=== PATIENT | female | born 1995 | race Caucasian/White ===

== ENCOUNTER → 2016-10-05 | Outpatient (CLI) | payer OTHER ==
--- NOTE | 2016-10-06 07:41 | WWHP ---
DATE OF SERVICE: 10/05/2016 CHIEF COMPLAINT: The patient is here for her routine gynecologic exam and for brit control. HPI: This is a 21-year-old G0 with an LMP of 09/23/16 who has been using condoms for control. She states she used Nexplanon from about age 17 to 21 and this was discontinued early in 04/22 because of side effects. She thinks she gained close to 50 pounds with Nexplanon. She also feels like she had more food allergies when she was on Nexplanon. She also thinks she had more headaches with Nexplanon. She had fewer periods with Nexplanon. She believes her periods were regular prior to starting Nexplanon. After the Nexplanon was removed periods have been about monthly, but have been heavier with clots. She did have a month where she had fairly continuous bleeding throughout the month in July of 2016. Her last pelvic examination was about 4 years ago. Past medication history is unremarkable. MEDICATIONS: None. ALLERGIES: No known drug allergies. PAST SURGICAL HISTORY: None. 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 She has no history of STDs. SOCIAL HISTORY: She quit smoking early in 2016. She has about 3 alcoholic drinks per month and denies drug use. She has been with her fiance since 2013. She plans to get in 2019. This is her second sexual partner in her lifetime. She is planning to go back to school and is currently not working outside the home. FAMILY HISTORY: She has 2 aunts who had breast cancer and ovarian cancer. One also developed bone cancer. She has an uncle who had lung and brain cancer and a grandmother and uncle who have diabetes. REVIEW OF SYSTEMS: She believes she gained about 50 pounds from age 17 to 20 while on Nexplanon. She denies respiratory, cardiac or GI problems. PHYSICAL EXAM: Blood pressure 114/68. Height 5 feet 6 inches. Weight 260 pounds. Temperature 96.4. Pulse 79. This is a well-developed, heavyset white female who is alert and oriented x3 in no acute distress. HEENT is within normal limits. NECK: Supple without mass or thyromegaly. CHEST AND LUNGS: Clear to auscultation. HEART: Regular rate and rhythm. Breasts are without mass or discharge. Axillary exam is negative for adenopathy. BACK: Negative for CVA tenderness. ABDOMEN: Mildly obese, soft, nontender without palpable masses. PELVIC EXAM: Normal external genitalia. Cervix and vagina appear normal. There is no unusual discharge. There is no cervical motion tenderness. The uterus is mid position, nongravid size and nontender. There are no palpable adnexal masses or tenderness. Bimanual examination is somewhat limited secondary to her size. Rectal exam was deferred. EXTREMITIES: Nontender. IMPRESSION: 1. A 21-year-old female with normal gynecologic exam. 2. Menometrorrhagia after discontinuing Nexplanon in 2016. 3. The patient is overweight. PLAN: 1. Pap smear was performed. 2. Self-breast examination was discussed. 3. GC and chlamydia testing from the cervix was obtained. 4. The patient will keep a menstrual calendar. 5. We discussed various options for control. At this time, I think a trial of oral contraception would be [place] because of her menometrorrhagia. We have discussed other options including NuvaRing and IUDs. The patient was given a prescription for Ortho Tri-Cyclen and she is to take 1 daily and she will start this on the Tuesday following the onset of her next normal menstrual period. I have recommended that she use condoms through the first pack and as needed for STD prevention. 6. STD prevention was discussed. We have discussed the importance of limiting sexual partners and condom use. 7. We have discussed ways of weight control including the importance of regular exercise and good nutrition. 8. control pill side effects and risks were discussed including possibility of headaches, nausea, weight gain and breast tenderness. She was instructed to call if she was having problems with control pills. We have also discussed the increased risk for blood clots. 9. Prescription for the control pills for the upcoming year was given to the patient. 10. She will return in one year and p.r.n. MTDD
== END | disposition home or self-care (01) ==
LOC: WWCWWP 09:52
PROVIDERS: ATTEND Obstetrics & Gynecology
DX: Z11.3 Encounter for screening for infections with a predominantly sexual mode of transmission (principal)
CPT/HCPCS: 87491; 87591

== ENCOUNTER → 2017-11-29 | Outpatient (CLI) | payer OTHER ==
[2017-11-29 08:51] VITALS: BP 114/73; PULSE 87; TEMP 98; BMI 38.8
--- NOTE | 2017-11-29 09:42 | P.HPOB ---
History of Present Illness H&P Date: 11/29/17 Chief Complaint: The patient is here for her routine gynecologic exam. This is a 22-year-old G0 with an LMP of 10/02/2017. The patient states her menstrual periods were regular every month until September. She states her LMP lasted nearly 2 months. She states she did a test which was negative. She has been using condoms for control. She briefly used oral contraception as prescribed last year, but she had difficulty taking control pills consistently. She did not use them very long. She is otherwise without gynecologic complaints. She states she is probably not interested in ever having children. Review of Systems She has lost 12 pounds over the last year. She denies respiratory, cardiac, or G.I. problems. 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 History of Any Multi-Drug Resistant Organisms: None Reported Past Surgical History: No Surgical Hx Reported Past Psychological History: No Psychological Hx Reported Smoking Status: Current some day smoker (About 6 cigarettes per week) Past Alcohol Use History: Rare Past Drug Use History: Marijuana (She states this helps her sleep.) - Past Family History Mother Additional Family Medical History / Comment(s): Some type of blood clotting disorder that requires her to take a baby aspirin daily. She has an aunt who had breast cancer and an aunt who had ovarian cancer. A grandmother had endometriosis. Medications and Allergies Home Medications Medication Instructions Recorded Confirmed Type Ibuprofen 400 mg PO PRN 11/29/17 History Allergies Allergy/AdvReac Type Severity Reaction Status Date / Time No Known Allergies Allergy Unverified 11/29/17 08:47 Exam Vital Signs Temp Pulse BP 11/29/17 08:47 98.0 F 87 114/73 Intake and Output 11/28/17 11/29/17 11/29/17 22:59 06:59 14:59 Other: Weight 112.491 kg Height 5'7", weight 248 pounds, BMI 38.8. This is a well-developed well-nourished heavyset white female who is alert and oriented times 3 in no acute distress. HEENT: Within normal limits. NECK: Supple without mass or thyromegaly. CHEST AND LUNGS: Clear to auscultation. HEART: Regular rate and rhythm. BREASTS: Are without mass or discharge. There is a birthmark at the 1 o'clock position of the left breast measuring presently 8 x 8 mm that the patient states she has had her entire life. AXILLARY EXAM: Negative for adenopathy. BACK: Negative for CVA tenderness. ABDOMEN: Soft, nontender, without palpable masses. PELVIC EXAM: Normal external genitalia. Cervix and vagina appear normal. There is no unusual discharge. There is no evidence of prolapse. The uterus is midposition, nongravid size and nontender. There are no palpable adnexal masses or tenderness. RECTAL EXAM: deferred EXTREMITIES: Nontender. IMPRESSION: 1. 22-year-old female with normal gynecologic exam using condoms for control. 2. Recent prolonged menses with previous regular menstrual periods. 3. Family history of a mother who has some type of blood clotting disorder. PLAN: 1. Pap smear was deferred since she had a normal one last year. 2. STD prevention was discussed. I have stressed the importance of limiting sexual partners and the use of condoms if she is sexually active. 3. We have discussed various options for control including the Nuva ring , control pills, condoms and IUD. I have asked the patient to try to find out the exact diagnosis of her mothers clotting disorder. We can consider testing if her mother has some type of hereditary clotting mutation. If the patient has some type of clotting mutation, we would probably want to avoid estrogen containing control. 4. I've given the patient information on the ParaGard IUD as well as some information on Nuva ring. She would like to consider these options. We also discussed tubal sterilization since she states she is probably not interested in having children ever. I have discouraged her from making the more permanent decision about sterilization at this time since she is so young. 5. STD screening will be done today including GC and Chlamydia screening from the cervix, blood tests including HIV, RPR, hepatitis B surface antigen, and hepatitis C antibody. 6. She will keep a menstrual calendar. She will call if she has menstrual irregularities. 7. She will return in one year and PRN. She will call if she is interested in proceeding with any of the control options discussed.
[2017-11-29 17:52] LABS: HIV 1 AB Non-Reactive (Non-Reactive); HIV AB P24 Non-Reactive (Non-Reactive); HIV P24 AG Non-Reactive (Non-Reactive)
[2017-11-29 18:09] LABS: Hepatitis C IgG Antibody Non-Reactive (Non-Reactive)
[2017-11-30 13:30] LABS: C. trachomatis,PCR Negative (Neg,Equiv); Chlamydia trachomatis Source Cervix; N. gonorrhoeae,PCR Negative (Neg,Equiv); Neisseria Source Cervix
== END | disposition home or self-care (01) ==
LOC: WWCWWP 08:41
PROVIDERS: ATTEND Obstetrics & Gynecology
DX: Z11.3 Encounter for screening for infections with a predominantly sexual mode of transmission (principal)
CPT/HCPCS: 86780; 86803; 87340; 87390; 87491; 87591

== ENCOUNTER → 2019-01-24 | Outpatient (CLI) | payer OTHER ==
[2019-01-24 08:13] VITALS: BP 100/64; PULSE 77; RESP 16; TEMP 98.1
--- NOTE | 2019-01-24 09:01 | P.HPOB ---
History of Present Illness H&P Date: 01/24/19 Chief Complaint: the patient is here for her routine gynecologic exam and control. This is a 23-year-old G0 with an LMP of 01/13/2019. The patient is requesting to be started on control pills. She has been using spermicide or withdrawal for control. She had previously tried control pills but was not taking them consistently and therefore discontinued them. She had also used Nexplanon but she felt sick with that and had it removed after 1 or 2 y ears. She states her menses are regular every month. Her last 2 menstrual periods have been shorter than usual and lasted about 2-3 days when they usually have been lasting about 5 days. She took 2 tests and they were both negative. She is without gynecologic complaints. She thinks she will do better taking the control pills consistently this time. Review of Systems The patient has lost 21 pounds over the last year. She denies respiratory, cardiac, or G.I. problems. 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 History of Any Multi-Drug Resistant Organisms: None Reported Past Surgical History: No Surgical Hx Reported Past Psychological History: No Psychological Hx Reported Smoking Status: Former smoker Past Alcohol Use History: Rare (4 per year) Additional Past Alcohol Use History / Comment(s): she quit smoking in 2018. Past Drug Use History: Marijuana Additional Drug Use History / Comment(s): she states she uses marijuana to help her sleep. Additional History: she is single but has been with her boyfriend since July 2017. 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 - Past Family History Mother Additional Family Medical History / Comment(s): her mother takes a baby aspirin daily, but the patient states her mother has never had a internal blood clots. She has an aunt who had breast cancer and an aunt who had ovarian cancer. A grandmother had endometriosis. Medications and Allergies Home Medications Medication Instructions Recorded Confirmed Type Ibuprofen 400 mg PO DAILY PRN 11/29/17 01/24/19 History Cholecalciferol (Vitamin D3) 1 tab PO DAILY 01/24/19 01/24/19 History [Vitamin D3] Iron 25 mg PO DAILY 01/24/19 01/24/19 History Allergies Allergy/AdvReac Type Severity Reaction Status Date / Time No Known Allergies Allergy Unverified 01/24/19 08:15 Exam Vital Signs Temp Pulse Resp BP Pulse Ox 01/24/19 08:09 98.1 F 77 16 100/64 98 Intake and Output 01/23/19 01/24/19 01/24/19 22:59 06:59 14:59 Other: Weight 102.965 kg height 5 feet 6 inches, weight 227 pounds, BMI 36.6. This is a well-developed well-nourished White female who is alert and oriented times 3 in no acute distress. HEENT: Within normal limits. NECK: Supple without mass or thyromegaly. CHEST AND LUNGS: Clear to auscultation. HEART: Regular rate and rhythm. BREASTS: Are without mass or discharge. AXILLARY EXAM: Negative for adenopathy. BACK: Negative for CVA tenderness. ABDOMEN: Soft, nontender, without palpable masses. PELVIC EXAM: Normal external genitalia. Cervix and vagina appear normal. There is no unusual discharge. There is no evidence of prolapse. The uterus is midposition, nongravid size and nontender. There are no palpable adnexal masses or tenderness. RECTAL EXAM: deferred EXTREMITIES: Nontender. IMPRESSION: 1. 23-year-old female with normal gynecologic exam requesting oral contraception for control. PLAN: 1. Pap smear was performed. 2. Self breast awareness was discussed with the patient. 3. STD prevention was discussed. I have stressed the importance of limiting sexual partners and she is aware that condom use would help to decrease the risk for STDs. 4. GC and chlamydia testing were obtained from the cervix. Blood tests will include HIV, RPR, hepatitis B surface antigen and hepatitis C antibody. 5. we had a long discussion regarding control pills including risks such as internal blood clots. We also discussed how smoking can increase the risk for blood clots. She understands these things and would like to start control pills. She will be started on Tri-Sprintec andshe is to take 1 daily starting on the first Tuesday after the onset of her next normal menstrual period. The electronic prescription will be sent to [facility] pharmacy on . She will call if she has any questions or problems. 6. She was advised to return in one year for her annual well woman exam.
[2019-01-24 18:22] LABS: Hepatitis B Surface Antigen Non-Reactive (Non-Reactive); Hepatitis C IgG Antibody Non-Reactive (Non-Reactive)
[2019-01-24 18:26] LABS: HIV 1 AB Non-Reactive (Non-Reactive); HIV 2 AB Non-Reactive (Non-Reactive); HIV AB P24 Non-Reactive (Non-Reactive); HIV P24 AG Non-Reactive (Non-Reactive)
[2019-01-25 15:03] LABS: C. trachomatis,PCR Positive (Neg,Equiv); Chlamydia trachomatis Source Cervix; N. gonorrhoeae,PCR Negative (Neg,Equiv); Neisseria Source Cervix
== END | disposition home or self-care (01) ==
LOC: WWCWWP 08:03
PROVIDERS: ATTEND Obstetrics & Gynecology
DX: Z11.3 Encounter for screening for infections with a predominantly sexual mode of transmission (principal)
CPT/HCPCS: 36415; 86780; 86803; 87340; 87390; 87491; 87591

== ENCOUNTER 2020-05-10 08:37 | Inpatient (IN) | payer OTHER ==
[2020-05-10] MEDS ORDERED: AMPICILLIN 2,000 MG in SODIUM CHLORIDE 0.9% 100 ML IVPB STA (09:04)
[2020-05-10] MEDS ORDERED: BETAMET ACET-BETAMETH SOD PHOS 6 MG/ML MDV IM SCH (09:15)
[2020-05-10] MEDS: LACTATED RINGERS 1,000 ML IV SCH ×2 (09:23→14:53)
[2020-05-10] MEDS ORDERED: LIDOCAINE 0.5% (PF) 5 MG/ML (50 ML SDV) SQ PRN (10:01)
[2020-05-10] MEDS ORDERED: METHYLERGONOVINE 0.2 MG/ML 1 ML AMP IM PRN (10:01)
[2020-05-10] MEDS ORDERED: CARBOPROST TROMETHAMINE 250 MCG/ML 1 ML AMP IM PRN (10:01)
[2020-05-10] MEDS ORDERED: OXYTOCIN 10 UNIT/ML 1 ML VIAL IM PRN (10:01)
[2020-05-10] MEDS ORDERED: TERBUTALINE 1 MG/ML VIAL SQ PRN (10:01)
[2020-05-10] MEDS ORDERED: OXYTOCIN 30 UNITS/500 ML NS 30 UNIT in SALINE 1 500ML.BAG IV SCH (10:15)
[2020-05-10] MEDS ORDERED: LACTATED RINGERS 1,000 ML IV SCH (10:15)
[2020-05-10 10:23] LABS: Basophils % (A) 0 %; Eosinophils # (A) 0.1 k/uL (0-0.7); Eosinophils % (A) 1 %; HCT 32.8 % (34.0-46.0); HGB 11.2 gm/dL (11.4-16.0); Lymphocytes # (A) 1.2 k/uL (1.0-4.8); Lymphocytes % (A) 11 %; MCH 26.8 pg (25.0-35.0); MCHC 34.2 g/dL (31.0-37.0); MCV 78.3 fL (80.0-100.0); Monocytes # (A) 0.5 k/uL (0-1.0); Monocytes % (A) 4 %; Neutrophils # (A) 9.3 k/uL (1.3-7.7); Neutrophils % (A) 83 %; Platelet Count 206 k/uL (150-450); RDW 14.3 % (11.5-15.5); WBC 11.1 k/uL (3.8-10.6)
[2020-05-10] MEDS ORDERED: ROPIVACAINE 5MG/ML 20ML VIAL ONE (11:06)
[2020-05-10] MEDS ORDERED: SODIUM CHLORIDE 0.9% 100 ML BAG ONE (11:06)
[2020-05-10] MEDS ORDERED: fentaNYL (PF) 50 MCG/ML 5 ML AMP ONE (11:06)
[2020-05-10] MEDS ORDERED: ROPIVACAINE 100 MG, fentaNYL (PF). 200 MCG in SODIUM CHLORIDE 0.9% 76 ML EPIDURAL ONE (11:27)
[2020-05-10] MEDS ORDERED: AMPICILLIN 1,000 MG in SODIUM CHLORIDE 0.9% 50 ML IVPB SCH (13:00)
[2020-05-10] MEDS ORDERED: diphenhydrAMINE 25 MG CAP PO PRN (17:03)
[2020-05-10] MEDS ORDERED: LANOLIN CREAM 5 GM TUBE TOPICAL PRN (17:03)
[2020-05-10] MEDS ORDERED: ACETAMINOPHEN TAB 325 MG TAB PO PRN (17:03)
[2020-05-10] MEDS ORDERED: BENZOCAINE/MENTHOL SPRAY 1 GM/SPRAY AEROSOL TOPICAL PRN (17:03)
[2020-05-10] MEDS ORDERED: ZOLPIDEM 5 MG TAB PO PRN (17:03)
[2020-05-10] MEDS ORDERED: diphenhydrAMINE 50 MG CAP PO PRN (17:03)
[2020-05-10] MEDS ORDERED: diphenhydrAMINE 50 MG/ML 1 ML VIAL IVP PRN ×2 (17:03)
[2020-05-10] MEDS ORDERED: SIMETHICONE 80 MG CHEWABLE PO PRN (17:03)
[2020-05-10] MEDS ORDERED: HYDROCORTISONE 2.5% RECTAL CREAM 30 GM TUBE RECTAL PRN (17:03)
--- NOTE | 2020-05-10 17:06 | P.HPOB ---
History of Present Illness H&P Date: 05/10/20 Chief Complaint: Intrauterine at 34 weeks 5 days gestation: Active labor Patient is a 25-year-old 0 at 34 weeks 5 days gestation who arrives complaining of contractions and discomfort for the last 4 hours. While she was in triage she got up to use the restroom and had spontaneous rupture of her membranes. Clear fluid is noted. Her course otherwise had been relatively unremarkable and she was feeling well at this time. Ultrasound previously showed vertex presentation at 32 weeks and baby in the 80th percentile. At that time amniotic fluid index was 7.9 which is low normal. As she was dilated to 4 to half to 5 cm we did have a discussion on safety of transfer and due to the fact that she was ruptured and appeared to be making change the decision to keep her here and do local delivery with expectation for transfer of the baby after delivery was made. She did receive 1 dose of Celestone and IV antibiotics for group B strep prophylaxis has been started. All other questions are answered for her at this time. The midlevel provider is also spoken to her and she is aware of what the plan will be. Likely she will do an epidural for analgesia and if labor doesn't begin to stall plan Pitocin for augmentation of labor. 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 History of Any Multi-Drug Resistant Organisms: None Reported Past Surgical History: No Surgical Hx Reported Past Anesthesia/Blood Transfusion Reactions: No Reported Reaction Past Psychological History: Anxiety Smoking Status: Former smoker Past Alcohol Use History: Rare Additional Past Alcohol Use History / Comment(s): she quit smoking in 2018. Past Drug Use History: Marijuana Additional Drug Use History / Comment(s): she states she uses marijuana to help her sleep. Not since . - Past Family History Mother Family Medical History: No Reported History Additional Family Medical History / Comment(s): her mother takes a baby aspirin daily, but the patient states her mother has never had a internal blood clots. She has an aunt who had breast cancer and an aunt who had ovarian cancer. A grandmother had endometriosis. Medications and Allergies Home Medications Medication Instructions Recorded Confirmed Type Pnv,Calcium 72/Iron/Folic Acid 1 each PO 05/10/20 History [ Plus Tablet] Allergies Allergy/AdvReac Type Severity Reaction Status Date / Time No Known Allergies Allergy Unverified 01/24/19 08:15 Exam Osteopathic Statement: *. No significant issues noted on an osteopathic structural exam other than those noted in the History and Physical/Consult. Vital Signs Temp Pulse Resp BP Pulse Ox 05/10/20 08:42 97.3 F L 81 18 99/56 100 Intake and Output 05/10/20 05/10/20 05/10/20 06:59 14:59 22:59 Intake Total 2000 Output Total 300 Balance 1700 Intake: IV 1999 Output: Urine 300 Other: Weight 113.852 kg - OBG Physical Exam Breast: both: normal (no masses) Abdomen: bowel sounds normal, no diffuse tenderness, no bruit present, no guarding noted, no hepatomegaly, no splenomegaly, no mass Vulva: both: normal Vagina: normal moisture, no discharge Cervix: no lesion, no discharge Uterus: normal size, normal contour Adnexa: both: normal Anus/Rectum: normal perianal skin, no rectal mass, no hemorrhoids, heme negative Results Result Diagrams: 05/10/20 09:15 Abnormal Lab Results - Last 24 Hours (Table) 05/10/20 Range/Units 09:15 WBC 11.1 H (3.8-10.6) k/uL Hgb 11.2 L (11.4-16.0) gm/dL Hct 32.8 L (34.0-46.0) % MCV 78.3 L (80.0-100.0) fL Neutrophils # 9.3 H (1.3-7.7) k/uL
--- NOTE | 2020-05-10 17:08 | P.PROBDLV ---
Vaginal Delivery Note - . Vaginal Delivery Note: Patient progressed to complete and pushing with spontaneous vaginal delivery of a viable over a intact perineum from right occiput anterior position. Following delivery of the head gentle downward traction was used to deliver the anterior posterior shoulders followed by the remainder the baby. Mouth and nares were bulb suctioned and baby was then placed mother's abdomen where the umbilical cord was allowed to pulsate for 30 seconds prior to clamping and cu tting. 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 Placenta was then delivered intact and Pitocin was added to the IV. scores and weight are pending but baby is in special care nursery at this time with expectation for transfer this afternoon. Once placenta was delivered, inspection vagina revealed a left periurethral avulsion and a right periurethral laceration. The right periurethral laceration was repaired with 3- 0 Vicryl running fashion following 1% Xylocaine for analgesia. A rubber catheter was used to verify no urethral involvement. Once this was completed is noted that the mother is in stable condition.
[2020-05-10] MEDS ORDERED: IBUPROFEN 600 MG TAB PO SCH (17:15)
[2020-05-10 18:00] VITALS: RESP 18
[2020-05-10 19:16] VITALS: BP 107/68; PULSE 65; TEMP 97.1
[2020-05-10] MEDS ORDERED: SENNOSIDES-DOCUSATE SODIUM 1 EACH TAB PO SCH (20:00)
== END 2020-05-10 20:45 | disposition home or self-care (01) | DRG 807 ==
LOC: FBPOP 08:37 → 4FBP 09:40
PROVIDERS: ADMIT Obstetrics & Gynecology; ATTEND Obstetrics & Gynecology
PROC: 10E0XZZ Delivery of Products of Conception, External Approach (ICD-10-PCS; principal; 2020-05-10)
PROC: 00HU33Z Insertion of Infusion Device into Spinal Canal, Percutaneous Approach (ICD-10-PCS; principal; 2020-05-10)
PROC: 3E0R3BZ Introduction of Anesthetic Agent into Spinal Canal, Percutaneous Approach (ICD-10-PCS; principal; 2020-05-10)
PROC: 0UQMXZZ Repair Vulva, External Approach (ICD-10-PCS; principal; 2020-05-10)
DX: O71.82 Other specified trauma to perineum and vulva (principal); Z37.0 Single live birth; K21.9 Gastro-esophageal reflux disease without esophagitis; O99.62 Diseases of the digestive system complicating childbirth; Z3A.34 34 weeks gestation of pregnancy; Z79.899 Other long term (current) drug therapy; Z87.891 Personal history of nicotine dependence; Z86.59 Personal history of other mental and behavioral disorders; Z80.41 Family history of malignant neoplasm of ovary; Z80.3 Family history of malignant neoplasm of breast; Z84.2 Family history of other diseases of the genitourinary system
CPT/HCPCS: 59025; 84112; 85025; 86850; 86900; 86901; 88307; 96365; 96366; 99213; 99214

== ENCOUNTER → 2020-11-12 | Outpatient (CLI) | payer OTHER ==
--- NOTE | 2020-11-12 16:25 | US ---
EXAMINATION TYPE: US thyroid st tissue head/neck DATE OF EXAM: 11/12/2020 COMPARISON: NONE CLINICAL HISTORY: E04.1 thyroid nodule. Neck tenderness GLAND SIZE: Right Lobe: 5.6 x 2.7 x 2.2 cm, enlarged Overall Parenchyma: heterogenous Left Lobe: 5.3 x 2.3 x 1.8 cm, enlarged Overall Parenchyma: heterogeneous Isthmus Thickness: 0.5 cm NODULES RIGHT: # of nodules measured on right: 0 LEFT: # of nodules measured on left: 0 ISTHMUS: # of nodules measured in the isthmus: 0 Bilateral neck scanned, no evidence of lymphadenopathy. Heterogeneous slightly enlarged thyroid gland without discrete nodule. IMPRESSION: As above.
== END | disposition home or self-care (01) ==
LOC: RADUSWWP 15:50
PROVIDERS: ATTEND Obstetrics & Gynecology
DX: E04.9 Nontoxic goiter, unspecified (principal)
CPT/HCPCS: 76536